=== PATIENT | female | born 1950 | race Caucasian/White ===

== ENCOUNTER 2023-08-01 12:25 | Observation (INO) | payer OTHER, SELFPAY ==
[2023-08-01] VITALS (23 sets, daily range): BP systolic 102–148; BP diastolic 56–94; PULSE 67–86; RESP 14–19; TEMP 36.3–36.8; O2SAT 92–98; BMI 24.2
--- NOTE | ~2023-08-01 | XR_ITS ---
EXAMINATION: XR HIP, RIGHT, AP pelvis CLINICAL INFORMATION: Dislocation reason postreduction COMPARISON: None available. TECHNIQUE: 2 views right hip. Post reduction, AP pelvis. FINDINGS: Dislocated right hip prosthesis with femoral head of the device displaced cephalad by approximately 4 cm. The prosthesis remain displaced on the post reduction image. Left hip prosthesis device remain in place properly positioned. No associated fractures. 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 XR/XR hip RT w PEL1V IMPRESSION: 1. Dislocated right hip prosthesis. 2. Failed reduction, the prosthesis remains dislocated on the post reduction image. 3. Left hip prosthesis device remain in place properly positioned. 4. Underlying degenerative arthritis, No associated fractures.
--- NOTE | ~2023-08-01 | XR_ITS ---
EXAMINATION: XR HIP, RIGHT, AP pelvis CLINICAL INFORMATION: Dislocation reason postreduction COMPARISON: None available. TECHNIQUE: 2 views right hip. Post reduction, AP pelvis. FINDINGS: Dislocated right hip prosthesis with femoral head of the device displaced cephalad by approximately 4 cm. The prosthesis remain displaced on the post reduction image. Left hip prosthesis device remain in place properly positioned. No associated fractures. 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 XR/XR hip RT 1V IMPRESSION: 1. Dislocated right hip prosthesis. 2. Failed reduction, the prosthesis remains dislocated on the post reduction image. 3. Left hip prosthesis device remain in place properly positioned. 4. Underlying degenerative arthritis, No associated fractures.
--- NOTE | ~2023-08-01 | XR_ITS ---
EXAMINATION: XR HIP, RIGHT CLINICAL INFORMATION: Closed reduction right hip COMPARISON: Prior radiographs performed earlier same day of the right hip and pelvis TECHNIQUE: Two views of the right hip. FINDINGS: The previously noted hip dislocation has been reduced. No periprosthetic fracture identified. Question the depth of the positioning of the femoral head with respect to the acetabular cup. I'm not certain whether not the femoral head is seated deeply enough into acetabulum Surrounding bone and soft tissues unremarkable XR/XR hip RT min 2V IMPRESSION: 1. Reduction of previously noted hip dislocation. 2. Question the depth of the femoral head with respect to the acetabular cup. Correlate with type of arthroplasty and postoperative imaging to ensure appropriate positioning. I'm not certain whether not the femoral head is seated deeply enough into the acetabulum. The appearance can vary with the type of arthroplasty
--- NOTE | 2023-08-01 12:40 | ECG_ITS ---
Test Reason : PRE-SEDATION Blood Pressure : / mmHG Vent. Rate : 067 BPM Atrial Rate : 067 BPM P-R Int : 130 ms QRS Dur : 076 ms QT Int : 446 ms P-R-T Axes : 018 -55 046 degrees QTc Int : 471 ms Normal sinus rhythm Left axis deviation Septal infarct , age undetermined Abnormal ECG When compared with ECG of 20-AUG-2015 11:25, Vent. rate has decreased BY 36 BPM Septal infarct is now Present Nonspecific T wave abnormality now evident in Inferior leads Nonspecific T wave abnormality now evident in Anterior leads Referred By: Elida Park Electronically Signed By:Westley Schaffer
--- NOTE | 2023-08-01 12:40 | ED.LOWEXIN ---
HPI - Extremity Injury (Lower) General Chief Complaint: Extremity Injury, Lower Stated Complaint: ?RT HIP DISLOCATION PER EMS Time Seen by Provider: 08/01/23 12:28 Source: patient and EMS Mode of arrival: EMS Limitations: no limitations History of Present Illness ED Provider: Elida Park APRN HPI Narrative: 72 yo female with history of COPD, hypothyroidism, depression, bilateral hip replacements at [facility] in 2009 here with complaints of right hip pain. 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 Since then she has been unable to move the extremity. No associated numbness or tingling. No additional injury. Related Data Allergies Allergy/AdvReac Type Severity Reaction Status Date / Time fentanyl [FENTANYL] Allergy Severe SEVERE Unverified 08/01/23 15:00 LETHARGY-WOULD NOT WAKE UP (IN PT.-2016) NSAIDS (Non-Steroidal Allergy Severe BRUISING Verified 08/01/23 15:00 Anti-Inflamma (ITP) [NSAIDS (NON-STEROIDAL ANTI-INFLAMMA] aspirin [ASA] Allergy Intermediate BRUISING Verified 08/01/23 15:00 (ITP) latex [LATEX] Allergy Intermediate RASH Unverified 11/24/19 16:01 sulfamethoxazole Allergy Unknown Verified 08/01/23 12:50 [From Bactrim] trimethoprim [From Bactrim] Allergy Unknown Verified 08/01/23 12:50 Latex Allergy Unknown rash Uncoded 09/23/16 00:00 Review of Systems Review of Systems: Yes all other systems are reviewed and are negative Constitutional: Constitutional: Reports no additional constitutional complaints, Denies body ache(s), Denies chills, Denies fever(s), Denies headache(s) and Denies weakness Eyes: Eyes: Reports no additional eye complaints and Denies change in vision ENT: Reports system reviewed and no additional complaints, except as documented, Denies dizziness, Denies headache(s), Denies nasal congestion, Denies nasal discharge and Denies neck pain Cardiovascular: Cardiovascular: Reports no additional cardiovascular complaints, Denies chest pain, Denies leg edema and Denies dyspnea Respiratory: Respiratory: Reports no additional respiratory complaints, Denies cough and Denies dyspnea Gastrointestinal: Gastrointestinal: Reports no additional gastrointestinal complaints, Denies abdominal pain, Denies diarrhea, Denies nausea and Denies vomiting Genitourinary: Genitourinary: Reports no additional female genitourinary complaints and Denies urinary incontinence Musculoskeletal: Musculoskeletal: Reports no additional musculoskeletal complaints, Denies back pain, Reports arthralgias, Reports joint swelling, Reports limited range of motion, Denies neck pain, Denies numbness and Denies tingling Integumentary/Breasts: Skin/Breast: Reports system reviewed and no additional complaints, except as docu and Denies rash Neurologic: Reports system reviewed and no additional complaints, except as documented, Denies Abnormal speech present, Denies dizziness, Denies headache(s), Denies numbness, Denies tingling and Denies weakness PMFSH Past Medical History Attestation statement: The following information was validated with the patient. Source: old records reviewed and nursing notes reviewed Social History Social History Smoked in Last 30 Days: No Use of substances other than those prescribed or required for medical reasons: Yes Substance Use Type: Marijuana Advance Directives: No Advance Directives Information Provided: No Physical Exam Vital Signs: Vital Signs: Last Vital Signs Temp 98 F 08/01/23 12:52 Pulse 74 08/01/23 15:28 Resp 15 08/01/23 15:28 BP 140/72 H 08/01/23 15:28 Pulse Ox 93 08/01/23 15:28 O2 Del Method Nasal Cannula 08/01/23 15:28 O2 Flow Rate 3 08/01/23 15:28 Oxygen Flow Rate 5 08/01/23 14:24 BMI result Body Mass Index 24.2 Const: General: cooperative, healthy appearing, comfortable and no acute distress Orientation/consciousness: patient oriented x3 Limitations: no limitations HEENT: Head: Yes normal to inspection Ears: hearing grossly normal bilaterally General nose exam: Normal external nose present Face and sinus: Yes normal facial exam Mouth: Normal oral and palatal mucosa present Throat: Yes posterior oropharynx normal Eyes: General: appearance normal, both eyes and all related structures Pupils: Equal, round and reactive pupils present Neck: Neck: Yes normal visual inspection Chest: Chest palpation & inspection: normal inspection of the chest Resp: Effort & Inspection: normal respiratory effort Auscultation: clear to auscultation bilaterally Cardio: Rate: regular rate Rhythm: regular rhythm Peripheral pulses: Peripheral pulses 2+ throughout GI: Inspection: Yes normal to inspection Palpation (GI): Soft to palpation and nontender Auscultation: normal bowel sounds Back/Spine/Pelvis: Thoracic/Lumbar Spine: thoracic and lumbar spine normal to inspection Skin: General skin exam: no rashes or lesions noted Neuro: General: patient oriented x3, no focal motor deficits and normal sensation to monofilament Cranial nerves: Yes Equal, round and reactive pupils present Cognition (Neuro): normal cognition Speech: No Abnormal speech present Gait exam (Neuro): Normal gait present Motor exam (neuro): 5/5 motor strength present throughout Extrem: Other: The right knee is held in a flexed position and the patient has pain on palpation over the right hip. She has distal DP and PT pulses. Normal distal sensation. ++++pain Course Course Course Narrative: X-ray shows right hip dislocation. Patient will need conscious sedation. Reevaluation(s) Reevaluation #1: 1530-reduction was not successful. I spoke to Orthopedics and they will take the patient to the OR for a hip reduction. Reevaluation #2: 1600-Sign out to Linda OLSEN pending plan of care for OR, dc from ER with ortho follow-up outpatient Medications Administered Discontinued Medications Generic Name Dose Route Start Last Admin Trade Name Freq PRN Reason Stop Dose Admin Hydromorphone HCl 0.5 mg 08/01/23 14:59 08/01/23 15:04 Hydromorphone Hcl 0.5 Mg/0.5 Ml Syringe IVPUSH 08/01/23 15:00 0.5 mg ONCE ONE Administration Protocol Morphine Sulfate 4 mg 08/01/23 12:40 08/01/23 13:11 Morphine Sulfate 4 Mg/Ml Cartridge IVPUSH 08/01/23 12:41 4 mg ONCE ONE Administration Protocol Morphine Sulfate 4 mg 08/01/23 13:42 08/01/23 13:30 Morphine Sulfate 4 Mg/Ml Cartridge IVPUSH 08/01/23 13:43 4 mg ONCE ONE Administration Protocol Ondansetron HCl 4 mg 08/01/23 12:40 08/01/23 13:07 Ondansetron Hcl 4 Mg/2 Ml Vial IVPUSH 08/01/23 12:41 4 mg ONCE ONE Administration Propofol 190 mg 08/01/23 14:59 08/01/23 15:01 Propofol 200 Mg/20 Ml Vial IVPUSH 08/01/23 15:00 190 mg ONCE ONE Administration Medical Decision Making Medical Decision Making [facility] Narrative: 72 yo female with history of COPD, hypothyroidism, depression, bilateral hip replacements at [facility] in 2009 here with complaints of right hip pain.? 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 Since then she has been unable to move the extremity.? No associated numbness or tingling.? No additional injury. The right knee is held in a flexed position and the patient has pain on palpation over the right hip.? She has distal DP and PT pulses.? Normal distal sensation. ++++pain Will need pain control prior to additional assessment. Will order labs, x-ray Differential Diagnosis Differential Diagnoses: The differential diagnosis associated with the presentation includes Dislocation, fracture Admission/Observation Consideration of admission/observation: Escalation of care including admission/observation considered Unsuccessful reduction in the emergency room. Patient had orthopedic consulted ([facility] OLSEN) and she will go to the OR for reduction Consult Healthcare Provider Management of the patient was discussed with: [employer] Instructor I spoke to Orthopedics and they will take the patient to the OR for a hip reduction Lab Data [facility] Lab Attestation statement: I reviewed the patient's lab results. 08/01/23 13:01 08/01/23 13:01 Labs: Lab Results 08/01/23 Range/Units 13:01 WBC 10.2 (4.8-10.8) X10*3/uL RBC 4.59 (4.20-5.50) X10*6/uL Hgb 14.3 (12.0-16.0) g/dl Hct 43.2 (37.0-47.0) % MCV 94.1 (80.0-98.0) fL MCH 31.2 (27.0-33.0) pg MCHC 33.1 (31.0-35.0) g/dl RDW 11.9 (11.0-16.0) % Plt Count 190 (160-400) X10*3/uL MPV 8.9 L (9.4-12.3) fL Immature Gran % (Auto) 0.5 H (0.0-0.4) % Neut % (Auto) 73.7 H (45-73) % Lymph % (Auto) 18.6 L (20-40) % Rabun % (Auto) 6.2 (2-11) % Eos % (Auto) 0.7 (0-4) % Baso % (Auto) 0.3 (0-2) % Lymph # (Auto) 1.9 (1.2-4.9) X10*3/uL Rabun # (Auto) 0.6 (0.1-1.2) X10*3/uL Eos # (Auto) 0.1 (0.0-0.4) X10*3/uL Baso # (Auto) 0.0 (0.0-0.2) X10*3/uL Abs Immat Gran (auto) 0.05 H (0.00-0.03) X10*3/uL Absolute Neuts (auto) 7.5 (2.0-8.3) x10*3/uL Absolute Nucleated RBC 0.000 (0.0-0.012) X10*3/uL Nucleated RBC % (auto) 0.0 (0.0-0.2) /100WBC Sodium 141 (135-145) mmol/L Potassium 4.0 (3.3-5.1) mmol/L Chloride 105 (96-108) mmol/L Carbon Dioxide 24 (22-29) mmol/L Anion Gap 16 (12-20) BUN 10 (9-16) mg/dL Creatinine 0.93 (0.5-1.4) mg/dL Estim Creat Clear Calc 48.5 Estimated GFR 59 Random Glucose 162 H (60-115) mg/dL Calcium 9.2 (8.4-10.2) mg/dL Independent Interpretation I performed an independent interpretation of an: Plain X-Ray Interpretation: I independently reviewed the x-ray and agree with the radiology report Radiology Impression Discussion of test interpretation with radiology: I have reviewed the radiologist's reading. Radiologist Impression: Launch?Image [address] [address] XRay Report Signed Patient: Renata Minaya MR#: [id number] : 1950 Acct:[id number] Age/Sex: 72 / F ADM Date: 08/01/23 Loc: HO.ED Attending Dr: Ordering Physician: Renata Wiggins MD Date of Service: 08/01/23 Procedure(s): XR hip RT 1V Accession Number(s): [id number] cc: Renata Wiggins MD; Physician,Unknown ~ EXAMINATION: XR HIP, RIGHT, AP pelvis CLINICAL INFORMATION: Dislocation reason postreduction COMPARISON: None available. TECHNIQUE: 2 views right hip. Post reduction, AP pelvis. FINDINGS: Dislocated right hip prosthesis with femoral head of the device displaced cephalad by approximately 4 cm. The prosthesis remain displaced on the post reduction image. Left hip prosthesis device remain in place properly positioned. No associated fractures. 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 XR/XR hip RT 1V IMPRESSION: 1. Dislocated right hip prosthesis. 2. Failed reduction, the prosthesis remains dislocated on the post reduction image. 3. Left hip prosthesis device remain in place properly positioned. 4. Underlying degenerative arthritis, No associated fractures. Independent Historian Clinical information obtained from an independent historian. History obtained from or confirmed by: EMS Procedures Orthopedic Joint Reduction Joint #1: Time Out Performed: Yes Side: right Joint Reduction Location: hip Analgesia: procedural sedation Technique used: traction/counter-traction Post-reduction neuro exam: intact Post-reduction vascular: intact Post Reduction X-Ray Obtained: Yes Post Reduction X-Ray Results: not reduced Patient Tolerated Procedure: well Procedural Sedation Indication: fracture/dislocation reduction ASA Class: I Mallampati Class: I Time of Last PO Intake: 08:00 Preparation: satellite project site monitor applied, pulse oximeter, capnometry used, supplemental O2 applied, reversal agents at bedside, suction/airway equipment at bedside and IV secured IV Propofol dose (mg): 190 Patient Tolerated Procedure: well Complications: none Critical Care Time Critical Care Time Critical Care Time: Yes Total Critical Care Time: 60 Attestation: Attempted reduction of a hip dislocation but unsuccessful requiring OR Discharge Plan Discharge Clinical Impression: Dislocation, hip Patient Disposition: Xfer Other Transfer Details: OR
[2023-08-01 13:04] LABS: MANUAL DIFF FLAG NO
[2023-08-01 13:06] LABS: Basophils Percent Auto 0.3 % (0-2); Eosinophils Absolute Auto 0.1 X10*3/uL (0.0-0.4); Eosinophils Percent Auto 0.7 % (0-4); Hematocrit 43.2 % (37.0-47.0); Hemoglobin 14.3 g/dl (12.0-16.0); Imm Gran Abs Auto 0.05 X10*3/uL (0.00-0.03); Imm Gran Pct Auto 0.5 % (0.0-0.4); Lymphocytes Absolute Auto 1.9 X10*3/uL (1.2-4.9); Lymphocytes Percent Auto 18.6 % (20-40); Mean Corpuscular HGB Conc 33.1 g/dl (31.0-35.0); Mean Corpuscular Hemoglobin 31.2 pg (27.0-33.0); Mean Corpuscular Volume 94.1 fL (80.0-98.0); Mean Platelet Volume 8.9 fL (9.4-12.3); Monocytes Absolute Auto 0.6 X10*3/uL (0.1-1.2); Monocytes Percent Auto 6.2 % (2-11); Neutrophils Absolute Auto 7.5 x10*3/uL (2.0-8.3); Neutrophils Percent Auto 73.7 % (45-73); Platelet Count 190 X10*3/uL (160-400); Red Blood Count 4.59 X10*6/uL (4.20-5.50); Red Cell Distribution Width 11.9 % (11.0-16.0); White Blood Count 10.2 X10*3/uL (4.8-10.8)
[2023-08-01] MEDS: ondansetron HCL 4 MG/2 ML VIAL IVPUSH (13:07)
[2023-08-01] MEDS: Morphine Sulfate 4 MG/ML CARTRIDGE IVPUSH ×2 (13:11→13:30)
[2023-08-01 13:20] LABS: Anion Gap 16 (12-20); Blood Urea Nitrogen 10 mg/dL (9-16); Calcium 9.2 mg/dL (8.4-10.2); Carbon Dioxide 24 mmol/L (22-29); Chloride 105 mmol/L (96-108); Creatinine Clr Calc Pharmacy 48.5; Estimated Glomerular Filt Rate 59; Glucose Random 162 mg/dL (60-115); Sodium 141 mmol/L (135-145)
--- NOTE | 2023-08-01 13:34 | PC.NURSE ---
Pt presents to ED via EMS from home. Reports she was crouched down, stood up and felt her right hip pop out. Has hx of prosthetic hips bilat placed approx 14 years ago. Denies any fall or head hit, was able to crawl down the stairs to ask for help. Alert and oriented, breathing even and unlabored, skin warm and dry. Right leg slightly shortened and inward rotated. Pain 10/10 in right hip area.
--- NOTE | 2023-08-01 14:15 | PC.NURSE ---
Pt set up for conscious sedation procedure. On bedside property assessment monitor, NSR. End tidal capno placed. Crash cart at bedside and suctioning set up. VSS
--- NOTE | 2023-08-01 14:54 | PC.NURSE ---
Conscious sedation procedure: RN, RT, MD, DAM ATTENDANT and tech at bedside for procedure. VSS and pt on monitoring manager and end tidal capno. Pt tolerated procedure well, received 190 mg of Propofol total throughout event. Vital signs were monitored and remained stable. Pt did require short period of resp support from RT. No complications.
--- NOTE | 2023-08-01 14:56 | PC.NURSE ---
Post-procedure: Pt awake, oriented but sleepy. Breathing even and unlabored. VSS, NSR on potline monitor. SPO2 94 and greater on RA. RN remained at bedside. Pt does report frank 8/10 in right hip, denies new complaints.
--- NOTE | 2023-08-01 14:59 | PC.NURSE ---
Pt alert and oriented X4 now. Breathing even and unlabored. VSS.
[2023-08-01] MEDS: propofoL 200 MG/20 ML VIAL 190 MG IVPUSH (15:01)
[2023-08-01] MEDS: HYDROmorphone HCl 0.5 MG/0.5 ML SYRINGE IVPUSH ×4 (15:04→23:52)
--- NOTE | 2023-08-01 17:06 | PHA.MEDREC ---
Addendum entered by Justin Apple [facility] 08/01/23 21:33: Per pharmacy claims and double checking with patient. Patient takes 1/2 tablet of 25mcg (12.5 mcg) on Mo, We, Fr.i Original Note: Pharmacy Consult ? Medication Reconciliation Pharmacy has completed the medication reconciliation. spoke with patient to confirm medications. She reports taking levothyroxine 1/2 tablet of the 50 mcg Thursday, Thursday, Thursday.
[2023-08-01] MEDS: 0.9 % Sodium Chloride 1,000 ML 999 ML IV (17:40)
--- NOTE | 2023-08-01 17:45 | PC.NURSE ---
Pt trialed off O2, noted to drop to 90% RA, placed on 2L O2 via NC and maintains >93%. Pt denies any SOB. Reports overall improvement from pain medicine.
--- NOTE | 2023-08-01 18:35 | P.BOP_ITS ---
Brief Operative Note Date of Service: 08/01/23 Pre-op diagnosis: Right total hip arthroplasty dislocation with failed attempt of closed reduction in the emergency room Post-op diagnosis: same Procedure: Right total hip arthroplasty closed reduction under general anesthesia in the operating room Surgeon: Gordon Johnson MD Anesthesia: GLMA Was an Sludge Control Operator used for this Procedure?: No Estimated blood loss (mL): 0 Pathology: none sent Condition: stable Disposition: PACU
--- NOTE | 2023-08-01 18:36 | P.OP_ITS ---
Operative Note Operative Note Date of Service: 08/01/23 Narrative: After the patient was identified as Renata Minaya and her right hip was initialed by myself she was brought to the operating room where general anesthesia was induced by the anesthesiologist in routine fashion. No pre operative antibiotics were given. A closed reduction of the patient's right total hip arthroplasty was then performed without difficulty. C-arm AP and lateral radiographs were taken to confirm that the femoral head was back within the acetabular component on both views. There was full range of motion of the patient's right hip when compared to her left with no crepitus. The patient was awoken and extubated in the operating room. She was transferred to recovery room in stable condition.
[2023-08-01] MEDS: Lactated Ringers 1,000 ML 100 ML IVCONT (20:07)
[2023-08-01] MEDS: Docusate Sodium 100 MG CAPSULE PO (20:07)
[2023-08-01] MEDS: amLODIPine Besylate 10 MG TABLET PO (21:28)
[2023-08-01] MEDS: Gabapentin 400 MG CAPSULE PO (21:28)
[2023-08-02 03:31] VITALS: BP 103/60; PULSE 69; RESP 18; TEMP 36.1; O2SAT 92
[2023-08-02] MEDS: Lactated Ringers 1,000 ML 100 ML IVCONT (05:58)
[2023-08-02 08:00] VITALS: BP 123/63; PULSE 74; RESP 12; TEMP 36.3; O2SAT 91
[2023-08-02] MEDS: oxyCODONE HCl Immed Release 5 MG TABLET PO (09:56)
[2023-08-02 09:57] VITALS: BP 123/63
[2023-08-02] MEDS: FLUoxetine HCl 10 MG CAPSULE PO (09:57)
[2023-08-02] MEDS: FLUoxetine HCl 20 MG CAPSULE 40 MG PO (09:57)
[2023-08-02] MEDS: Losartan Potassium 50 MG TABLET 100 MG PO (09:57)
[2023-08-02] MEDS: 0.9 % Sodium Chloride Flush 3 ML SYRINGE IVFLUSH (09:59)
--- NOTE | 2023-08-02 10:44 | PC.NURSE ---
Patient requested to have the camera removed and bed alarms turned off, patient was educated on safety, importance to call for help when getting oob. Patient alert and oriented, able to ambulate with a walker.
--- NOTE | 2023-08-02 11:29 | PM.DS ---
DS: Providers Provider Date of Service: 08/02/23 Date of admission: 08/01/23 16:22 Primary care physician: Unknown Physician DS: Diagnosis Discharge Diagnosis (1) Dislocation, hip: Status: Acute DS: Summary Hospital Course Hospital Course: The patient underwent a successful closed reduction of RT total hip arthroplasty on 08/01/[address] Johnson, was transferred to PACU and then to the floor to recover. During their stay, their vitals were stable, afebrile. POD 1, patient is feeling well, no acute complaints. Moving joint well, no evidence of stiffness. NVI. No erythema or swelling around the joint. Ecchymosis noted on the lateral aspect of the RT leg. The plan is to be discharged home with follow-up with [facility] in 1 week. Ambulate with walker at all times. Time Attestation Discharge Coordination Time (in mins): 30 minutes Quality: Safe Use of Opioids Does Pt have an Active Cancer Diagnosis on the Problem List?: No Quality: Stroke Does the patient have a stroke diagnosis?: No Physical Exam Vital Signs: Vital Signs: Last Vital Signs Temp 97.4 F 08/02/23 08:00 Pulse 74 08/02/23 08:00 Resp 12 08/02/23 08:00 BP 123/63 08/02/23 09:57 Pulse Ox 91 L 08/02/23 08:00 O2 Del Method Room Air 08/02/23 08:00 O2 Flow Rate 2 08/01/23 23:53 Oxygen Flow Rate 5 08/01/23 14:24 BMI result Body Mass Index 24.2 DS: Data Data Completed and Pending Labs on day of discharge: Laboratory Results - last 24 hr 08/01/23 13:01 WBC 10.2 RBC 4.59 Hgb 14.3 Hct 43.2 MCV 94.1 MCH 31.2 MCHC 33.1 RDW 11.9 Plt Count 190 MPV 8.9 L Immature Gran % (Auto) 0.5 H Neut % (Auto) 73.7 H Lymph % (Auto) 18.6 L Fallon % (Auto) 6.2 Eos % (Auto) 0.7 Baso % (Auto) 0.3 Lymph # (Auto) 1.9 Fallon # (Auto) 0.6 Eos # (Auto) 0.1 Baso # (Auto) 0.0 Abs Immat Gran (auto) 0.05 H Absolute Neuts (auto) 7.5 Absolute Nucleated RBC 0.000 Nucleated RBC % (auto) 0.0 Sodium 141 Potassium 4.0 Chloride 105 Carbon Dioxide 24 Anion Gap 16 BUN 10 Creatinine 0.93 Estim Creat Clear Calc 48.5 Estimated GFR 59 Random Glucose 162 H Calcium 9.2 Discharge Plan Discharge Anticipated Discharge Date/Time: 08/02/23 11:25 Patient Disposition: Home, Self-Care Discharge Diagnosis: S/P closed reduction RT hip prosthesis Discharge Medications: Continued losartan 50 mg tablet 100 mg PO QAM fluoxetine 40 mg capsule 40 mg PO QAM Rx Instructions: TDD: 50mg gabapentin 400 mg capsule 400 mg PO BEDTIME acetaminophen 500 mg Tablet 1,000 mg PO DAILY PRN (Reason: Pain) levothyroxine 25 mcg tablet 12.5 mcg PO MOWEFR amlodipine 10 mg tablet 10 mg PO QPM fluoxetine 10 mg capsule 10 mg PO QAM Rx Instructions: TDD: 50mg albuterol sulfate 90 mcg/actuation HFA aerosol inhaler 2 puff inhalation Q4H PRN (Reason: Shortness Of Breath Or Wheezing) oxycodone 5 mg tablet 5 - 10 mg PO Q6H PRN (Reason: pain) Discharge Orders: Discharge Order (Routine); Ordered 08/02/23 Ordered By: Fallon Perez Diet: Regular diet Activity on Discharge: Use cane or walker Stand Alone Forms: Patient Portal Discharge page Print Language: Angolan Activity Restrictions/Additional Instructions: Follow-up with [facility] orthopedic Motrin or Tylenol for pain as needed Ambulate at all times w/ walker until f/u in ortho office Care Plan Goals: Restore function of joint Health Concerns: None Plan of Treatment: Follow up with orthopedics in 1 week Assessment: As above Patient Instructions: Hip Dislocation (ED)
== END 2023-08-02 12:15 | disposition home or self-care (01) ==
LOC: HO.ED 15:46 → HO.SSS 16:12 → HO.ED 16:15 → HO.EDOVER 16:27 → HO.S3 16:59
PROVIDERS: Nurse Practitioner Family; Orthopaedic Surgery; Admitting Provider Physician Assistant; Emergency Provider Student in an Organized Health Care Education/Training Program; Visit Provider Physician Assistant
PROC: (CPT 27265; principal; 2023-08-01 18:00)
DX: T84.020A Dislocation of internal right hip prosthesis, initial encounter (principal); X50.1XXA Overexertion from prolonged static or awkward postures, initial encounter; Y79.2 Prosthetic and other implants, materials and accessory orthopedic devices associated with adverse incidents; Y92.9 Unspecified place or not applicable; M25.551 Pain in right hip; E03.9 Hypothyroidism, unspecified; J44.9 Chronic obstructive pulmonary disease, unspecified; Z96.643 Presence of artificial hip joint, bilateral
CPT/HCPCS: 27265; 36415; 73501; 73502; 80048; 85025; 93005; 96361; 96374; 96375; 99221; 99285; J1100; J1170; J2270; J2405; J2704; J3010; J7120

== ENCOUNTER → 2023-08-01 12:40 | Outpatient (BNV) | payer MEDICARE, SELFPAY | PROVIDERS: Admitting Provider Physician Assistant; Emergency Provider Student in an Organized Health Care Education/Training Program; Visit Provider Internal Medicine Cardiovascular Disease | DX: R94.31 Abnormal electrocardiogram [ECG] [EKG] (principal) | CPT/HCPCS: 93010 ==

== ENCOUNTER → 2023-08-01 16:22 | Outpatient (BNV) | payer MEDICARE, SELFPAY | PROVIDERS: Admitting Provider Physician Assistant; Emergency Provider Student in an Organized Health Care Education/Training Program; Visit Provider Orthopaedic Surgery | DX: T84.020A Dislocation of internal right hip prosthesis, initial encounter (principal) | CPT/HCPCS: 27266; 99024 ==